=== PATIENT | female | born 1955 | race Caucasian/White ===

== ENCOUNTER 2021-11-17 02:42 | Emergency (ER) | payer MEDICARE, BC ==
[~2021-11-17] VITALS: Ht 165.1 cm; Wt 65.8 kg
--- NOTE | 2021-11-17 02:45 | NUR ---
DR BEGUM AT BEDSIDE FOR MSE.
[2021-11-17] MEDS ORDERED: CLONIDINE HCL 0.1 MG TABLET PO ONE (03:00)
[2021-11-17] MEDS ORDERED: CLONIDINE HCL 0.1 MG TABLET ONE (03:15)
[2021-11-17] MEDS ORDERED: CLON0.1T PO (03:27)
[2021-11-17 03:36] LABS: *BILIRUBIN,URIN NEGATIVE (NEGATIVE); *BLOOD, URINE NEGATIVE (NEGATIVE); *CLARITY,URINE CLEAR (CLEAR); *COLOR,URINE YELLOW (YELLOW); *KETONES,URINE NEGATIVE (NEGATIVE); *UROBILINOGEN,URINE 0.2 E.U./dl (NORMAL); LEUKOCYTE ESTERASE ,URINE NEGATIVE (NEGATIVE); NITRITE, URINE NEGATIVE (NEGATIVE); PH,URINE 6.5 (5.0-8.0); UGLUCOSE NEGATIVE (NEGATIVE)
--- NOTE | 2021-11-17 04:00 | NUR ---
PT CLEARED FOR DC BY RIN. Patient discharged to home in stable condition. Written and verbal after care instructions given. EDUCATION ON PRESCRIPTIONS PROVIDED. Patient verbalizes understanding of instructions. Stressed follow up or return to ER for worsening s/s. AMBULATED OUT OF ED IN STEADY GAIT.
[2021-11-17 04:01] VITALS: BP 164/74
== END 2021-11-17 04:01 | disposition home or self-care (01) ==
LOC: ER 02:48
DX: I10 Essential (primary) hypertension (principal); Z79.899 Other long term (current) drug therapy
CPT/HCPCS: 93005; A4663